=== PATIENT | female | born 1985 | race Caucasian/White ===

== ENCOUNTER 2018-02-25 11:40 | Day surgery (SDC) | payer OTHER ==
[2018-02-25] MEDS ORDERED: PROPOFOL 20 ML (13:54)
[2018-02-25] MEDS ORDERED: LIDOCAINE 100 MG SYRINGE (13:54)
== END 2018-02-25 16:01 | disposition home or self-care (01) ==
LOC: GIL 11:40
DX: K92.1 Melena (principal); D12.5 Benign neoplasm of sigmoid colon; K64.0 First degree hemorrhoids
CPT/HCPCS: 45385; 88305